=== PATIENT | male | born 1975 | race African-American/Black ===

== ENCOUNTER 2017-01-08 08:56 | Emergency (ER) | payer OTHER ==
[~2017-01-08] VITALS: Ht 170.2 cm; Wt 100.0 kg
[2017-01-08 09:14] VITALS: BP 141/82; PULSE 72; RESP 18; TEMP 98.7; O2SAT 94
[2017-01-08 09:23] VITALS: BP 141/89; PULSE 72; RESP 18; O2SAT 94
[2017-01-08 09:35] LABS: BASOPHIL % 0.4 % (0.0-2.0); EOSINOPHIL % 0.4 % (0.0-4.0); HEMATOCRIT 37.7 % (39.0-51.0); HEMO FLAGS DIFF FINAL; LYMPH % 23.1 % (9.0-44.0); LYMPHOCYTE # 2.4 TH/MM3 (1.0-4.8); MEAN CELL VOLUME 84.5 FL (80.0-100.0); MEAN CORPUSCULAR HEMOGLOBIN 28.9 PG (27.0-34.0); MEAN CORPUSCULAR HGB CONC 34.2 % (32.0-36.0); MONO % 8.3 % (0.0-8.0); NEUT % 67.8 % (16.0-70.0); PLATELET COUNT 340 TH/MM3 (150-450); RED BLOOD COUNT 4.47 MIL/MM3 (4.50-5.90); RED CELL DISTRIBUTION WIDTH 14.9 % (11.6-17.2); WHITE BLOOD COUNT 10.3 TH/MM3 (4.0-11.0)
--- NOTE | 2017-01-08 09:37 | PD ---
HPI Chief Complaint: Psychiatric Symptoms Time Seen by Provider: 09:16 Travel History International Travel<30 days: No Contact w/Intl Traveler<30days: No Traveled to known affect area: No History of Present Illness HPI Patient is a pleasant 41-year-old male who presents the emergency department as a Lamas act. Patient states he called 911 today as he has recently been off of his Seroquel, Cogentin, Zoloft for the last 3 days. Since he's had increasing paranoia and thoughts of suicide. Patient denies any delusions, hallucinations. He called 911 and felt as though he was given a jump off a bridge and he was Lamas acted by police and brought here. Patient states that the medications were only minimally helpful, of all the medications he is ever been on Seroquel has been the most helpful. He denies any concurrent medical complaints. PFSH Past Medical History Depression: Yes Schizophrenia: Yes Tetanus Vaccination: > 5 Years Influenza Vaccination: Yes Past Surgical History Surgical History: No Previous Surgery Social History Alcohol Use: Yes ("NOT OFTEN") Tobacco Use: Yes Substance Use: Yes (COCAINE, MARIJUANA) Allergies-Medications (Allergen,Severity, Reaction): Coded Allergies: No Known Allergies (Unverified , 01/08/17) Review of Systems Except as stated in HPI: all other systems reviewed are Neg Physical Exam Narrative GENERAL: Well-appearing male in no acute distress SKIN: Warm and dry. HEAD: Normocephalic. EYES: No scleral icterus. No injection or drainage. ENT: Mucous membranes pink and moist. NECK: Supple CARDIOVASCULAR: Regular rate and rhythm. No murmur appreciated. RESPIRATORY: No accessory muscle use. Clear to auscultation. Breath sounds equal bilaterally. GASTROINTESTINAL: Abdomen soft, non-tender, nondistended. MUSCULOSKELETAL: Normal gait NEUROLOGICAL: Awake and alert. Motor grossly within normal limits. Normal speech. PSYCHIATRIC: Blunted mood, affect. Admits to paranoia but no delusions, hallucinations or homicidal ideation. Depression with suicidal ideation with plan to jump off bridge. Data Data Last Documented VS Vital Signs Date Time Temp Pulse Resp B/P Pulse Ox O2 Delivery O2 Flow Rate FiO2 01/08/17 09:23 72 18 141/89 94 Room Air 01/08/17 09:14 98.7 Orders Complete Blood Count With Diff (01/08/17 09:16) Comprehensive Metabolic Panel (01/08/17 09:16) Psych Screen (01/08/17 09:16) Drug Screen, Random Urine (01/08/17 09:16) Diet Regular Basic (01/08/17 Breakfast) Quetiapine (Seroquel) (01/08/17 09:45) Labs Laboratory Tests Test 01/08/17 09:20 White Blood Count 10.3 TH/MM3 Red Blood Count 4.47 MIL/MM3 Hemoglobin 12.9 GM/DL Hematocrit 37.7 % Mean Corpuscular Volume 84.5 FL Mean Corpuscular Hemoglobin 28.9 PG Mean Corpuscular Hemoglobin 34.2 % Concent Red Cell Distribution Width 14.9 % Platelet Count 340 TH/MM3 Mean Platelet Volume 6.8 FL Neutrophils (%) (Auto) 67.8 % Lymphocytes (%) (Auto) 23.1 % Monocytes (%) (Auto) 8.3 % Eosinophils (%) (Auto) 0.4 % Basophils (%) (Auto) 0.4 % Neutrophils # (Auto) 7.0 TH/MM3 Lymphocytes # (Auto) 2.4 TH/MM3 Monocytes # (Auto) 0.8 TH/MM3 Eosinophils # (Auto) 0.0 TH/MM3 Basophils # (Auto) 0.0 TH/MM3 CBC Comment DIFF FINAL Differential Comment Sodium Level 139 MEQ/L Potassium Level 4.1 MEQ/L Chloride Level 104 MEQ/L Carbon Dioxide Level 27.4 MEQ/L Anion Gap 8 MEQ/L Blood Urea Nitrogen 19 MG/DL Creatinine 1.53 MG/DL Estimat Glomerular Filtration 51 ML/MIN Rate Random Glucose 89 MG/DL Calcium Level 8.7 MG/DL Total Bilirubin 0.4 MG/DL Aspartate Amino Transf 19 U/L (AST/SGOT) Alanine Aminotransferase 31 U/L (ALT/SGPT) Alkaline Phosphatase 91 U/L Total Protein 7.8 GM/DL Albumin 4.0 GM/DL Urine Opiates Screen NEG Urine Barbiturates Screen NEG Urine Amphetamines Screen NEG Urine Benzodiazepines Screen NEG Urine Cocaine Screen POS Urine Cannabinoids Screen POS MDM Medical Decision Making Medical Screen Exam Complete: Yes Emergency Medical Condition: Yes Medical Record Reviewed: Yes Differential Diagnosis 41-year-old male with history of paranoid schizophrenia, depression here with complaint of suicidal ideation after being off medications for the last 2 days. Differential includes medication nonadherence, schizophrenia, paranoid schizophrenia, depression, bipolar disorder, substance induced mood disorder. Narrative Course Patient placed on monitor, IV established and blood obtained. Given 100 mg Seroquel. CBC, CMP, urine drug screen were obtained and notable for BUN 19, creatinine 1.53. Positive cocaine and cannabinoids. Patient medically cleared for psychiatric evaluation. Diagnosis Primary Impression: Suicidal ideation Additional Impression: Polysubstance abuse Yuridia Acevedo MD Jan 08, 2017 09:37
[2017-01-08 09:39] LABS: AMPHETAMINE, URINE NEG (NEG); BARBITURATES, URINE NEG (NEG); COCAINE, URINE POS (NEG)
[2017-01-08] MEDS ORDERED: QUEtiapine FUMARATE 100 MG TAB PO ONE (09:45)
[2017-01-08 09:47] LABS: ANION GAP 8 MEQ/L (5-15); AST (GOT) 19 U/L (15-37); BICARBONATE 27.4 MEQ/L (21.0-32.0); BLOOD UREA NITROGEN 19 MG/DL (7-18); CHLORIDE 104 MEQ/L (98-107); GLOMERULAR FILTRATION RATE 51 ML/MIN (>89); POTASSIUM 4.1 MEQ/L (3.5-5.1); SODIUM (NA) 139 MEQ/L (136-145)
[2017-01-08 09:50] LABS: ALKALINE PHOSPHATASE 91 U/L (45-117); ALT (GPT) 31 U/L (12-78); TOTAL BILIRUBIN ADULT 0.4 MG/DL (0.2-1.0)
[2017-01-08 12:30] VITALS: BP 124/70; PULSE 75; RESP 18; TEMP 97.3; O2SAT 96
[2017-01-08] MEDS ORDERED: SERO400T PO (13:35)
[2017-01-08] MEDS ORDERED: ZOLO50TA PO (13:36)
[2017-01-08] MEDS ORDERED: VIST25CA PO (13:36)
[2017-01-08 18:00] VITALS: BP 103/59; PULSE 69; RESP 18; TEMP 98.6; O2SAT 96
[2017-01-08 22:40] VITALS: BP 100/58; PULSE 70; RESP 18; O2SAT 96
[2017-01-09 03:47] VITALS: BP 115/73; PULSE 54; RESP 18; O2SAT 99
[2017-01-09 06:55] VITALS: BP 139/89; PULSE 64; RESP 19; O2SAT 98
[2017-01-09 10:00] VITALS: BP 133/81; PULSE 65; RESP 18
[2017-01-09 14:24] VITALS: BP 112/49; O2SAT 96
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
== END 2017-01-09 15:23 | disposition home or self-care (01) ==
LOC: NEPA 08:56 → NEPJ 01-09 15:23
DX: F14.14 Cocaine abuse with cocaine-induced mood disorder (principal); F12.10 Cannabis abuse, uncomplicated; Z72.0 Tobacco use
CPT/HCPCS: 80053; 80307; 85025; 99283

== ENCOUNTER 2017-01-10 14:53 | Emergency (ER) | payer OTHER ==
[~2017-01-10] VITALS: Ht 170.2 cm; Wt 104.5 kg
[~2017-01-10 14:53] MED LIST: SERO400T PO; VIST25CA PO; ZOLO50TA PO
[2017-01-10 15:02] VITALS: BP 130/82; PULSE 71; RESP 15; TEMP 98; O2SAT 99
--- NOTE | 2017-01-10 15:39 | PD ---
HPI Chief Complaint: Psychiatric Symptoms Time Seen by Provider: 15:36 Travel History International Travel<30 days: No Contact w/Intl Traveler<30days: No Traveled to known affect area: No History of Present Illness HPI Patient is a 41-year-old male presenting to the emergency department for evaluation of depression, suicidal ideations and hearing voices. He states that the voices aren't telling him to do anything but it's more of an internal voice causing some confusion. He denies any constitutional complaints. Patient states that he was advised to come back to the emergency department today by his revenue officer. Patient reports not using any drugs or alcohol since prior to his last evaluation emergency department 2 days ago. He denies a significant past medical history other than mental health problems. He does endorse tobacco use but again denies any alcohol or drug use since prior to Tuesday. Patient does not have a suicide plan at this time but does report feeling suicidal and thinking about it. PFSH Past Medical History Depression: Yes Schizophrenia: Yes Social History Alcohol Use: Yes ("NOT OFTEN") Tobacco Use: Yes Substance Use: Yes Allergies-Medications (Allergen,Severity, Reaction): Coded Allergies: No Known Allergies (Unverified , 01/10/17) Reported Meds & Prescriptions Reported Meds & Active Scripts Active Reported Vistaril (Hydroxyzine Pamoate) 25 Mg Cap 25 Mg PO HS Zoloft (Sertraline HCl) 50 Mg Tab 50 Mg PO DAILY Seroquel (Quetiapine Fumarate) 400 Mg Tab 400 Mg PO HS Review of Systems Except as stated in HPI: all other systems reviewed are Neg Psychiatric: Positive: Depression, Suicidal Ideations, Substance Abuse Physical Exam Narrative GENERAL: Well-developed, well-nourished, alert gentleman. Resting comfortably in no acute distress. SKIN: Warm and dry. HEAD: Atraumatic. Normocephalic. EYES: Pupils equal and round. No scleral icterus. No injection or drainage. ENT: No nasal bleeding or discharge. Mucous membranes pink and moist. NECK: Trachea midline. No JVD. CARDIOVASCULAR: Regular rate and rhythm. No murmur appreciated. RESPIRATORY: No accessory muscle use. Clear to auscultation. Breath sounds equal bilaterally. GASTROINTESTINAL: Abdomen soft, non-tender, nondistended. Hepatic and splenic margins not palpable. MUSCULOSKELETAL: No obvious deformities. No clubbing. No cyanosis. No edema. NEUROLOGICAL: Awake and alert. No obvious cranial nerve deficits. Motor grossly within normal limits. Normal speech. PSYCHIATRIC: Flat, depressed mood and affect; insight and judgment normal. Data Data Last Documented VS Vital Signs Date Time Temp Pulse Resp B/P Pulse Ox O2 Delivery O2 Flow Rate FiO2 01/10/17 15:02 98.0 71 15 130/82 99 Orders Comprehensive Metabolic Panel (01/10/17 15:33) Psych Screen (01/10/17 15:39) Labs Laboratory Tests Test 01/10/17 15:50 Sodium Level 142 MEQ/L Potassium Level 4.0 MEQ/L Chloride Level 106 MEQ/L Carbon Dioxide Level 29.3 MEQ/L Anion Gap 7 MEQ/L Blood Urea Nitrogen 10 MG/DL Creatinine 1.18 MG/DL Estimat Glomerular Filtration 83 ML/MIN Rate Random Glucose 68 MG/DL Calcium Level 8.8 MG/DL Total Bilirubin 0.1 MG/DL Aspartate Amino Transf 16 U/L (AST/SGOT) Alanine Aminotransferase 25 U/L (ALT/SGPT) Alkaline Phosphatase 80 U/L Total Protein 7.0 GM/DL Albumin 3.5 GM/DL MDM Medical Decision Making Medical Screen Exam Complete: Yes Emergency Medical Condition: Yes Interpretation(s) Laboratory Tests Test 01/10/17 15:50 Sodium Level 142 MEQ/L Potassium Level 4.0 MEQ/L Chloride Level 106 MEQ/L Carbon Dioxide Level 29.3 MEQ/L Anion Gap 7 MEQ/L Blood Urea Nitrogen 10 MG/DL Creatinine 1.18 MG/DL Estimat Glomerular Filtration 83 ML/MIN Rate Random Glucose 68 MG/DL Calcium Level 8.8 MG/DL Total Bilirubin 0.1 MG/DL Aspartate Amino Transf 16 U/L (AST/SGOT) Alanine Aminotransferase 25 U/L (ALT/SGPT) Alkaline Phosphatase 80 U/L Total Protein 7.0 GM/DL Albumin 3.5 GM/DL Vital Signs Date Time Temp Pulse Resp B/P Pulse Ox O2 Delivery O2 Flow Rate FiO2 01/10/17 15:02 98.0 71 15 130/82 99 Differential Diagnosis Mood disorder versus substance abuse versus acute kidney injury versus depression versus other Narrative Course Patient is a 41-year-old male presenting to the emergency department on the advice of his revenue officer due to suicidal ideations, depression, and auditory hallucinations. Patient was just discharged on 08 January. At this point we will recheck a CMP due to elevated BUN and creatinine on the last admission. Patient had a positive tox screen then but denies any recent drug use. Psych screen ordered and pending. Workup initiated in triage, care patient will be transferred to a provider when a medical bed is available. BUN and creatinine have improved from prior results. Medically cleared at this time for psychiatric evaluation. Diagnosis Primary Impression: Medical clearance for psychiatric admission Additional Impressions: Depression Qualified Code: F32.9 - Depression, unspecified depression type Suicidal ideation Condition: Stable Araceli Weston Jan 10, 2017 15:39
[2017-01-10 16:42] LABS: ALKALINE PHOSPHATASE 80 U/L (45-117); TOTAL BILIRUBIN ADULT 0.1 MG/DL (0.2-1.0)
[2017-01-10 16:45] LABS: ALT (GPT) 25 U/L (12-78); ANION GAP 7 MEQ/L (5-15); AST (GOT) 16 U/L (15-37); BICARBONATE 29.3 MEQ/L (21.0-32.0); BLOOD UREA NITROGEN 10 MG/DL (7-18); CHLORIDE 106 MEQ/L (98-107); GLOMERULAR FILTRATION RATE 83 ML/MIN (>89); SODIUM (NA) 142 MEQ/L (136-145)
[2017-01-10 21:15] VITALS: BP 123/76; PULSE 73; RESP 16; O2SAT 97
[2017-01-11 02:02] VITALS: BP 140/85; PULSE 64; RESP 18; O2SAT 99
--- NOTE | 2017-01-11 12:42 | MB ---
cc: MAHESH BROWN MD DATE OF CONSULTATION 01/11/2017 PHYSICIAN REQUESTING CONSULTATION Emergency department REASON FOR CONSULTATION Lamas Act HISTORY OF PRESENT ILLNESS Mr. Donovan is a 41-year-old -[place]ian male with a reported history of schizoaffective disorder versus bipolar disorder who presents now on a voluntary basis to the emergency room with psychiatric complaints. Reviewing the electronic medical record, I note the patient was seen just a few days ago in consultation by Dr. Edgar who discharged the patient from the ED with prescriptions for medications. The patient was actively using substances including cocaine at that time. The patient was seen and examined. The chart reviewed. The case discussed with nurse in the [facility]. There has been no evidence of any suicidality or homicidality during observation in the [facility]. Per nursing staff, the patient has come here with the stated goal of getting into some sort of mental health [facility]. The patient tells me "I came in voluntarily for mental health and substance abuse." He is unable to describe any further psychiatric symptomatology without prompting, and he is overall quite a vague historian. He seems relatively unengaged in the interview until the topic of discharge comes up. At that point, he becomes the fairly manipulative and threatening and says that he must have inpatient psychiatric services and if not, he does not know what he might do. Prior to that, he had been denying suicidal or homicidal ideation. He, in fact told me, "I do not want to . I want to live for my son." As I noted above, the patient is a very vague historian and does not describe any issues with mood, anxiety or psychosis besides some mild paranoia. He says that he did not bother to fill the prescriptions given to him by Dr. Edgar. He had been psychiatrically hospitalized previously in [place], but did not pursue their follow up instructions either. Overall, the patient is quite antisocial and manipulative I suspect with a goal of obtaining care home as he is presently homeless. The remainder of the psychiatric ROS is negative. PAST PSYCHIATRIC HISTORY The patient reports prior psychiatric diagnoses as noted above. He is not presently under the care of a psychiatrist. He was recently psychiatrically hospitalized at [facility] in [place], he says under a [place]man Act, but he did pursue some psychotropic medication management for his reported primary mental illness. He endorses one prior suicide attempt by cutting, and I note that the patient has some superficial, longitudinal scars along his right wrist. FAMILY HISTORY The patient reports a family history of schizophrenia. He reports that his father struggled with substance use issues. He endorses "some" family history of suicide or suicide attempts, but he cannot provide any further details in this regard. CHEMICAL DEPENDENCY HISTORY The patient apparently has a history of crack cocaine abuse. He insists that he has not used any substances between when he was seen by Dr. Edgar, at which point at which point he had been actively using, and now. Repeat urine toxicology was not performed by the ED provider, but in any event, this would likely reveal the same substances given the brief time that the patient was outside of the psychiatric emergency room, regardless of whether ongoing substance use had occurred. SOCIAL HISTORY The patient is presently homeless. He is single, but has a 9-year-old son. 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 He also gets a disability income of 735 dollars a month. He does not have a payee. He denies any history. He is particularly evasive regarding his legal situation, but says ultimately that he is on probation for robbery charges. He denies any access to guns or firearms. PAST MEDICAL HISTORY See electronic medical record. REVIEW OF SYSTEMS No reported physical complaints today. PHYSICAL EXAMINATION VITAL SIGNS: T 98.0F; P 64/min; R 18/min; BP 140/85; SpO2 99% RA. A physical examination was completed by the ED provider and the patient was medically cleared. On my examination today, the patient appears to be well-nourished and well-developed and in no acute physical distress. No abnormal motor movements noted. No signs of substance intoxication or withdrawal noted. LABORATORY Reviewed. CMP significant for mildly decreased GFR at 83. MENTAL STATUS EXAM The patient is in hospital gown. He is fairly well-groomed and certainly maintaining basic hygiene. He is awake, alert and oriented to person and hospital along with approximate date at least. No signs of delirium. No abnormal motor movements noted. Steady gait and station. Speech is within normal limits for rate, tone and volume. Language and fund of knowledge seem average. Mood is fair and affect is somewhat blunted. Thought process linear. No loosening of associations. No aurelia delusional material elicited. Denies audiovisual hallucinations and does not appear internally stimulated. Denies suicidal or homicidal ideation initially, but then threatens some sort of acting out if he were discharged from the psychiatric emergency room this morning. Insight and judgment are fair. ASSESSMENT/PLAN 1. Malingering for care home, Z76.5 2. Antisocial personality traits 3. Polysubstance dependence, F19.20 This is a 41-year-old -[place]ian male with psychiatric history as detailed above who presents now voluntarily to the psychiatric emergency room for evaluation. The patient was recently evaluated by Dr. Edgar and discharged from the psychiatric emergency room with prescriptions for medications. The patient has not followed Dr. Edgar's recommendations on discharge and has apparently returned to the psychiatric emergency room in hopes of obtaining long-term placement in a psychiatric [facility]. Overall, the patient's presentation is quite manipulative with prominent antisocial personality traits, and I strongly suspect that he is malingering for care home at this time. I see no indication for psychiatric admission as I do not believe that the patient is at imminent risk of harm to self or others from an Bussey I mental illness. It is, of course, certainly possible that the patient may act out in retribution for us not admitting him and housing him as he wishes, but it would be counter-therapeutic at this juncture to accede to his manipulative demands as this would only facilitate his antisocial personality style. I have recommended that the patient follow up psychiatrically on an outpatient basis. I have counseled the patient regarding warning signs for need to return to the psychiatric emergency room as part of a general safety plan and emphasized that he must return if he is feeling genuinely suicidal or homicidal. I fear that this patient's prognosis overall is poor unless he gets his substance use and antisocial personality issues under better control, and as I noted, neither of these would be ameliorated by an inpatient stay on the general inpatient psychiatric unit. I have discussed the case with the nurse of the [facility]. The patient will be provide with an outpatient referral. The patient is psychiatrically clear for discharge from the ED. Mahesh NAGEL /8:28 AM /11:27 AM MTDD
== END 2017-01-11 10:58 | disposition home or self-care (01) ==
LOC: NEPA 14:53 → NEPJ 01-11 10:58
DX: F32.9 Major depressive disorder, single episode, unspecified (principal); F19.20 Other psychoactive substance dependence, uncomplicated; F20.9 Schizophrenia, unspecified; Z72.0 Tobacco use; Z59.0 Homelessness; Z76.5 Malingerer [conscious simulation]
CPT/HCPCS: 80053; 99284

== ENCOUNTER 2017-01-23 16:04 | Emergency (ER) | payer OTHER ==
[~2017-01-23] VITALS: Ht 170.2 cm; Wt 105.0 kg
[2017-01-23 16:15] VITALS: BP 136/59; PULSE 82; RESP 18; TEMP 98.6; O2SAT 97
[2017-01-23] MEDS ORDERED: SODIUM CHLORIDE 0.9% FLUSH 10 ML FLUSH IVF PRN (16:30)
--- NOTE | 2017-01-23 16:36 | PD ---
HPI . ? seizure earlier today Chief Complaint: Seizure Time Seen by Provider: 16:33 Travel History International Travel<30 days: No Contact w/Intl Traveler<30days: No Traveled to known affect area: No History of Present Illness HPI 41-year-old male with history of bipolar disorder, schizophrenia and depression here with complaints of possible seizure. Patient had some kind of seizure where he passed out. He says it was witnessed by other people. He denies any tongue biting or loss of bowel or bladder function. He tells us that he had not eaten for a very long period and thinks this may have contributed to his symptoms. He does report cocaine usage but has not used for about 1-2 weeks. He denies any alcohol or other illegal substance usage. Patient patient denies any pains or problems. He is asking to leave, as he wants return to the homeless intermediate for some type of dinner that they will be having today. He denies any chest pain, nausea, vomiting, diaphoresis or shortness of breath. Patient recently relocated from [place] to the [facility]. He tells me he has been locally for about a month. Previous records indicate that he has been in the ED before for suicidal ideation. There are no reports of seizure disorder in the past. PFSH Past Medical History Depression: Yes Schizophrenia: Yes Social History Alcohol Use: Yes ("NOT OFTEN") Tobacco Use: Yes (6 cigs daily ) Substance Use: Yes (marijuana, cocaine ) Allergies-Medications (Allergen,Severity, Reaction): Coded Allergies: No Known Allergies (Unverified , 01/10/17) Reported Meds & Prescriptions Reported Meds & Active Scripts Active Reported Vistaril (Hydroxyzine Pamoate) 25 Mg Cap 25 Mg PO HS Zoloft (Sertraline HCl) 50 Mg Tab 50 Mg PO DAILY Seroquel (Quetiapine Fumarate) 400 Mg Tab 400 Mg PO HS Review of Systems General / Constitutional: No: Fever Eyes: No: Visual changes HENT: No: Headaches Cardiovascular: No: Chest Pain or Discomfort Respiratory: No: Shortness of Breath Gastrointestinal: No: Abdominal Pain Genitourinary: No: Dysuria Musculoskeletal: No: Pain Skin: No Rash Neurologic: No: Weakness Psychiatric: No: Depression Endocrine: No: Polydipsia Hematologic/Lymphatic: No: Easy Bruising Physical Exam Narrative GENERAL: AAO x 3, no acute distress, Well-nourished, well-developed patient. SKIN: Warm and dry. No visible rashes or bruising. HEAD: Normocephalic and atraumatic. EYES: No scleral icterus. No injection or drainage. EOM intact, PERRLA ENT: No nasal drainage noted. Mucous membranes pink. Airway patent. NECK: Supple, trachea midline. No JVD. CARDIOVASCULAR: Regular rate and rhythm without murmurs, gallops, or rubs. RESPIRATORY: Breath sounds equal bilaterally. No accessory muscle use. No rhonchi or rales. GASTROINTESTINAL: Abdomen soft, non-tender, nondistended. EXTREMITIES: No cyanosis or edema. NEURO: grossly intact, CN II through XII intact, feed grinder strength normal bilaterally, upper extremity and lower extremity strength 5 out of 5, BACK: Nontender without obvious deformity. No CVA tenderness. PSYCH: AAO x 3, normal affect. Data Data Last Documented VS Vital Signs Date Time Temp Pulse Resp B/P Pulse Ox O2 Delivery O2 Flow Rate FiO2 01/23/17 16:15 98.6 82 18 136/59 97 Orders Electrocardiogram (01/23/17 ) Complete Blood Count With Diff (01/23/17 16:27) Basic Metabolic Panel (Bmp) (01/23/17 16:27) Alcohol (Ethanol) (01/23/17 16:27) Drug Screen, Random Urine (01/23/17 16:27) Blood Glucose (01/23/17 16:27) Ecg Monitoring (01/23/17 16:27) Iv Access Insert/Monitor (01/23/17 16:27) Oximetry (01/23/17 16:27) Sodium Chloride 0.9% Flush (Ns Flush) (01/23/17 16:30) Ckmb (Isoenzyme) Profile (01/23/17 16:39) D-Dimer (01/23/17 16:39) Troponin I (01/23/17 16:39) Labs Laboratory Tests Test 01/23/17 16:42 White Blood Count 6.7 TH/MM3 Red Blood Count 4.01 MIL/MM3 Hemoglobin 11.4 GM/DL Hematocrit 34.2 % Mean Corpuscular Volume 85.3 FL Mean Corpuscular Hemoglobin 28.4 PG Mean Corpuscular Hemoglobin 33.3 % Concent Red Cell Distribution Width 14.7 % Platelet Count 266 TH/MM3 Mean Platelet Volume 7.4 FL Neutrophils (%) (Auto) 59.6 % Lymphocytes (%) (Auto) 31.0 % Monocytes (%) (Auto) 6.5 % Eosinophils (%) (Auto) 2.3 % Basophils (%) (Auto) 0.6 % Neutrophils # (Auto) 4.0 TH/MM3 Lymphocytes # (Auto) 2.1 TH/MM3 Monocytes # (Auto) 0.4 TH/MM3 Eosinophils # (Auto) 0.2 TH/MM3 Basophils # (Auto) 0.0 TH/MM3 CBC Comment DIFF FINAL Differential Comment Sodium Level 141 MEQ/L Potassium Level 3.7 MEQ/L Chloride Level 106 MEQ/L Carbon Dioxide Level 27.1 MEQ/L Anion Gap 8 MEQ/L Blood Urea Nitrogen 11 MG/DL Creatinine 1.18 MG/DL Estimat Glomerular Filtration 83 ML/MIN Rate Random Glucose 119 MG/DL Calcium Level 8.9 MG/DL Ethyl Alcohol Level LESS THAN 3 MG/DL MDM Medical Decision Making Medical Screen Exam Complete: Yes Emergency Medical Condition: Yes Medical Record Reviewed: Yes Differential Diagnosis New onset seizure, hypoglycemia, less likely ACS Narrative Course 41-year-old male with history of bipolar disorder, schizophrenia and depression here with complaints of possible seizure. Patient had some kind of seizure where he passed out. He says it was witnessed by other people. He denies any tongue biting or loss of bowel or bladder function. He tells us that he had not eaten for a very long period and thinks this may have contributed to his symptoms. He does report cocaine usage but has not used for about 1-2 weeks. He denies any alcohol or other illegal substance usage. Patient patient denies any pains or problems. He is asking to leave, as he wants return to the homeless intermediate for some type of dinner that they will be having today. He denies any chest pain, nausea, vomiting, diaphoresis or shortness of breath. Patient recently relocated from [place] to the [facility]. He tells me he has been locally for about a month. Previous records indicate that he has been in the ED before for suicidal ideation. There are no reports of seizure disorder in the past. Patient seen and examined. Case discussed with Dr. Martinez. EKG was normal sinus rhythm. Nonetheless will check CE and D dimer to r/o ACS and PE. Recommend CT scan of the brain and basic labs. If negative patient will likely be cleared for discharge. We will monitor him in the meantime. I believe patient may have had a hypoglycemic event and actually passed out from low blood sugar due to the fact he had not eaten in quite some time. Patient unfortunately decided to leave AMA. He was aware of risks. Diagnosis Primary Impression: Left against medical advice Disposition: 07 AGAINST MEDICAL ADVICE Fanny Hay Jan 23, 2017 16:36
--- NOTE | 2017-01-23 16:45 | PD ---
Physical Exam Date Seen by Provider: Jan 23, 2017 Narrative Patient presents to us status post a seizure or syncopal event Data Data Last Documented VS Vital Signs Date Time Temp Pulse Resp B/P Pulse Ox O2 Delivery O2 Flow Rate FiO2 01/23/17 16:15 98.6 82 18 136/59 97 Orders Electrocardiogram (01/23/17 ) Complete Blood Count With Diff (01/23/17 16:27) Basic Metabolic Panel (Bmp) (01/23/17 16:27) Alcohol (Ethanol) (01/23/17 16:27) Drug Screen, Random Urine (01/23/17 16:27) Ct Brain W/O Iv Contrast(Rout) (01/23/17 ) Blood Glucose (01/23/17 16:27) Ecg Monitoring (01/23/17 16:27) Iv Access Insert/Monitor (01/23/17 16:27) Oximetry (01/23/17 16:27) Sodium Chloride 0.9% Flush (Ns Flush) (01/23/17 16:30) Ckmb (Isoenzyme) Profile (01/23/17 16:39) D-Dimer (01/23/17 16:39) Troponin I (01/23/17 16:39) MDM Supervised Visit with GOPI: Yes Narrative Course I, Dr. Martinez, have reviewed the advance practice practitioner's documentation and am in agreement, met with the patient face to face, made the diagnosis, and the medical decision making was done by me. *My assessment and Findings: Patient does not appear postictal. He is awake and alert and fully oriented. He has no lateralizing neurologic findings. Patient Instructions: General Instructions Condition: Stable Alicia Martinez MD Jan 23, 2017 16:45
[2017-01-23 17:29] LABS: BASOPHIL % 0.6 % (0.0-2.0); EOSINOPHIL # 0.2 TH/MM3 (0-0.4); EOSINOPHIL % 2.3 % (0.0-4.0); HEMATOCRIT 34.2 % (39.0-51.0); HEMO FLAGS DIFF FINAL; LYMPHOCYTE # 2.1 TH/MM3 (1.0-4.8); MEAN CELL VOLUME 85.3 FL (80.0-100.0); MEAN CORPUSCULAR HEMOGLOBIN 28.4 PG (27.0-34.0); MEAN CORPUSCULAR HGB CONC 33.3 % (32.0-36.0); MONO % 6.5 % (0.0-8.0); NEUT % 59.6 % (16.0-70.0); PLATELET COUNT 266 TH/MM3 (150-450); RED BLOOD COUNT 4.01 MIL/MM3 (4.50-5.90); RED CELL DISTRIBUTION WIDTH 14.7 % (11.6-17.2); WHITE BLOOD COUNT 6.7 TH/MM3 (4.0-11.0)
[2017-01-23 18:05] LABS: ANION GAP 8 MEQ/L (5-15); BICARBONATE 27.1 MEQ/L (21.0-32.0); BLOOD UREA NITROGEN 11 MG/DL (7-18); CHLORIDE 106 MEQ/L (98-107); GLOMERULAR FILTRATION RATE 83 ML/MIN (>89); POTASSIUM 3.7 MEQ/L (3.5-5.1); SODIUM (NA) 141 MEQ/L (136-145)
[2017-01-24 02:08] LABS: CREATINE KINASE 216 U/L (39-308)
[2017-01-24 02:20] LABS: CKMB 1.8 NG/ML (0.5-3.6)
--- NOTE | 2017-01-24 14:04 | EKG ---
Date Performed: 01/23/2017 Time Performed: 16:16:27 PTAGE: 41 years EKG: Sinus rhythm NORMAL ECG NO PREVIOUS TRACING DOCTOR: Mark Main Interpretating Date/Time 01/24/2017 14:01:41
== END 2017-01-23 18:43 | disposition left against medical advice (07) ==
LOC: NEPA 16:04
DX: R56.9 Unspecified convulsions (principal); F20.9 Schizophrenia, unspecified; F31.9 Bipolar disorder, unspecified; F17.200 Nicotine dependence, unspecified, uncomplicated
CPT/HCPCS: 80048; 80307; 82550; 82552; 84484; 85025; 93005

== ENCOUNTER 2017-01-24 18:44 | Emergency (ER) | payer OTHER ==
[2017-01-24] MEDS ORDERED: SODIUM CHLOR 0.9% 1000 ML INJ 1,000 ML IV SCH ×2 (18:51→20:51)
--- NOTE | 2017-01-24 18:56 | PD ---
HPI Chief Complaint: Alcohol/Drug Intoxication Time Seen by Provider: 18:51 Travel History International Travel<30 days: No Contact w/Intl Traveler<30days: No Traveled to known affect area: No History of Present Illness HPI The patient is a 41-year-old [place] male who presents to the emergency department after drug ingestion. According EMS the patient smoked "spice" earlier today. The patient then was somewhat paranoid and appeared to be "fidgeting ", according to EMS. The patient appeared to run out in traffic according to EMS, therefore, the police called EMS to evaluate the patient. The patient denies any suicidal or homicidal ideation. He denies any hallucinations or delusions. He does admit to smoking "spice "earlier today and has a history of drug ingestion in the past including cocaine. He denies illicit drug use. He denies any current chest pain, shortness breath, nausea, vomiting, or abdominal pain. EMS states they administered Ativan 2 mg IM prior to arrival which appeared to alleviate the patient's symptoms. PFSH Past Medical History Depression: Yes Schizophrenia: Yes Social History Alcohol Use: Yes ("NOT OFTEN") Tobacco Use: Yes (6 cigs daily ) Substance Use: Yes (marijuana, cocaine ) Allergies-Medications (Allergen,Severity, Reaction): Coded Allergies: No Known Allergies (Unverified , 01/24/17) Reported Meds & Prescriptions Reported Meds & Active Scripts Active Reported Zoloft (Sertraline HCl) 50 Mg Tab 50 Mg PO DAILY Seroquel (Quetiapine Fumarate) 400 Mg Tab 400 Mg PO HS Review of Systems Except as stated in HPI: all other systems reviewed are Neg General / Constitutional: No: Fever Cardiovascular: No: Chest Pain or Discomfort Respiratory: No: Shortness of Breath Gastrointestinal: No: Nausea, Vomiting, Abdominal Pain Musculoskeletal: No: Weakness Neurologic: No: Dizziness Psychiatric: Positive: Substance Abuse, No: Suicidal Ideations, Homicidal Ideation Physical Exam Narrative GENERAL: Awake, alert, 41-year-old male who appears his stated age is in no acute respiratory distress. SKIN: Focused skin assessment warm/dry. HEAD: Atraumatic. Normocephalic. EYES: Pupils equal and round. 4 mm bilateral. Mild injection. ENT: No nasal bleeding or discharge. Mucous membranes pink and moist. NECK: Trachea midline. No JVD. CARDIOVASCULAR: Regular, tachycardic with a heart rate of 110. RESPIRATORY: No accessory muscle use. Clear to auscultation. Breath sounds equal bilaterally. GASTROINTESTINAL: Abdomen soft, non-tender, nondistended. MUSCULOSKELETAL: No obvious deformities. No clubbing. No cyanosis. No edema. NEUROLOGICAL: Awake and alert. No obvious cranial nerve deficits. Motor grossly within normal limits. Normal speech. Nonfocal. Oriented 4. Follows commands. PSYCHIATRIC: Appears slightly paranoid. Data Data Last Documented VS Vital Signs Date Time Temp Pulse Resp B/P Pulse Ox O2 Delivery O2 Flow Rate FiO2 01/25/17 06:31 78 20 136/78 99 01/24/17 19:32 97.7 Orders Complete Blood Count With Diff (01/24/17 18:46) Comprehensive Metabolic Panel (01/24/17 18:46) Electrocardiogram (01/24/17 18:46) Iv Access Insert/Monitor (01/24/17 18:46) Psych Screen (01/24/17 18:46) Drug Screen, Random Urine (01/24/17 18:46) Alcohol (Ethanol) (01/24/17 18:46) Salicylates (Aspirin) (01/24/17 18:46) Tylenol (Acetaminophen) (01/24/17 18:46) Lorazepam Inj (Ativan Inj) (01/24/17 19:00) Sodium Chlor 0.9% 1000 Ml Inj (Ns 1000 M (01/24/17 18:51) Creatine Kinase (Cpk) (01/24/17 18:51) Lactic Acid (01/24/17 18:51) Sodium Chlor 0.9% 1000 Ml Inj (Ns 1000 M (01/24/17 20:51) Lactic Acid (01/24/17 20:51) Labs Laboratory Tests Test 01/24/17 01/24/17 01/24/17 19:00 19:35 21:45 White Blood Count 6.6 TH/MM3 Red Blood Count 4.13 MIL/MM3 Hemoglobin 11.7 GM/DL Hematocrit 35.4 % Mean Corpuscular Volume 85.8 FL Mean Corpuscular Hemoglobin 28.2 PG Mean Corpuscular Hemoglobin 32.9 % Concent Red Cell Distribution Width 14.9 % Platelet Count 301 TH/MM3 Mean Platelet Volume 7.1 FL Neutrophils (%) (Auto) 78.7 % Lymphocytes (%) (Auto) 15.0 % Monocytes (%) (Auto) 5.3 % Eosinophils (%) (Auto) 0.5 % Basophils (%) (Auto) 0.5 % Neutrophils # (Auto) 5.2 TH/MM3 Lymphocytes # (Auto) 1.0 TH/MM3 Monocytes # (Auto) 0.3 TH/MM3 Eosinophils # (Auto) 0.0 TH/MM3 Basophils # (Auto) 0.0 TH/MM3 CBC Comment DIFF FINAL Differential Comment Sodium Level 144 MEQ/L Potassium Level 4.1 MEQ/L Chloride Level 110 MEQ/L Carbon Dioxide Level 25.0 MEQ/L Anion Gap 9 MEQ/L Blood Urea Nitrogen 14 MG/DL Creatinine 1.89 MG/DL Estimat Glomerular Filtration 48 ML/MIN Rate Random Glucose 170 MG/DL Calcium Level 9.4 MG/DL Total Bilirubin 0.1 MG/DL Aspartate Amino Transf 23 U/L (AST/SGOT) Alanine Aminotransferase 41 U/L (ALT/SGPT) Alkaline Phosphatase 89 U/L Total Protein 7.2 GM/DL Albumin 3.5 GM/DL Salicylates Level LESS THAN 1.7 MG/DL Urine Opiates Screen NEG Acetaminophen Level LESS THAN 2.0 MCG/ML Urine Barbiturates Screen NEG Urine Amphetamines Screen NEG Urine Benzodiazepines Screen NEG Urine Cocaine Screen POS Urine Cannabinoids Screen POS Ethyl Alcohol Level LESS THAN 3 MG/DL Lactic Acid Level 3.8 mmol/L 1.4 mmol/L Total Creatine Kinase 195 U/L MDM Medical Decision Making Medical Screen Exam Complete: Yes Emergency Medical Condition: Yes Medical Record Reviewed: Yes Interpretation(s) Laboratory Tests Test 01/24/17 01/24/17 01/24/17 19:00 19:35 21:45 White Blood Count 6.6 TH/MM3 Red Blood Count 4.13 MIL/MM3 Hemoglobin 11.7 GM/DL Hematocrit 35.4 % Mean Corpuscular Volume 85.8 FL Mean Corpuscular Hemoglobin 28.2 PG Mean Corpuscular Hemoglobin 32.9 % Concent Red Cell Distribution Width 14.9 % Platelet Count 301 TH/MM3 Mean Platelet Volume 7.1 FL Neutrophils (%) (Auto) 78.7 % Lymphocytes (%) (Auto) 15.0 % Monocytes (%) (Auto) 5.3 % Eosinophils (%) (Auto) 0.5 % Basophils (%) (Auto) 0.5 % Neutrophils # (Auto) 5.2 TH/MM3 Lymphocytes # (Auto) 1.0 TH/MM3 Monocytes # (Auto) 0.3 TH/MM3 Eosinophils # (Auto) 0.0 TH/MM3 Basophils # (Auto) 0.0 TH/MM3 CBC Comment DIFF FINAL Differential Comment Sodium Level 144 MEQ/L Potassium Level 4.1 MEQ/L Chloride Level 110 MEQ/L Carbon Dioxide Level 25.0 MEQ/L Anion Gap 9 MEQ/L Blood Urea Nitrogen 14 MG/DL Creatinine 1.89 MG/DL Estimat Glomerular Filtration 48 ML/MIN Rate Random Glucose 170 MG/DL Calcium Level 9.4 MG/DL Total Bilirubin 0.1 MG/DL Aspartate Amino Transf 23 U/L (AST/SGOT) Alanine Aminotransferase 41 U/L (ALT/SGPT) Alkaline Phosphatase 89 U/L Total Protein 7.2 GM/DL Albumin 3.5 GM/DL Salicylates Level LESS THAN 1.7 MG/DL Urine Opiates Screen NEG Acetaminophen Level LESS THAN 2.0 MCG/ML Urine Barbiturates Screen NEG Urine Amphetamines Screen NEG Urine Benzodiazepines Screen NEG Urine Cocaine Screen POS Urine Cannabinoids Screen POS Ethyl Alcohol Level LESS THAN 3 MG/DL Lactic Acid Level 3.8 mmol/L 1.4 mmol/L Total Creatine Kinase 195 U/L Differential Diagnosis Differential diagnosis includes drug ingestion, rhabdomyolysis, schizophrenia, paranoia, psychosis, polysubstance abuse. Narrative Course IV was established, labs are drawn and sent, and the patient was placed on cardiac telemetry monitoring and continuous pulse oximetry monitoring. Patient was administered IV fluids and Ativan. The patient will be monitored in the emergency department. The patient was signed out the mid-level provider 7 PM. Diagnosis Primary Impression: Polysubstance abuse Condition: Stable Gonsalo Anthony MD Jan 24, 2017 18:56
[2017-01-24] MEDS ORDERED: LORazepam 2 MG/ML VIAL IV PUSH ONE (19:00)
[2017-01-24 19:17] LABS: AUTOMATED NEUTROPHIL # 5.2 TH/MM3 (1.8-7.7); BASOPHIL % 0.5 % (0.0-2.0); EOSINOPHIL % 0.5 % (0.0-4.0); HEMATOCRIT 35.4 % (39.0-51.0); HEMO FLAGS DIFF FINAL; MEAN CELL VOLUME 85.8 FL (80.0-100.0); MEAN CORPUSCULAR HEMOGLOBIN 28.2 PG (27.0-34.0); MEAN CORPUSCULAR HGB CONC 32.9 % (32.0-36.0); MONO % 5.3 % (0.0-8.0); NEUT % 78.7 % (16.0-70.0); PLATELET COUNT 301 TH/MM3 (150-450); RED BLOOD COUNT 4.13 MIL/MM3 (4.50-5.90); RED CELL DISTRIBUTION WIDTH 14.9 % (11.6-17.2); WHITE BLOOD COUNT 6.6 TH/MM3 (4.0-11.0)
--- NOTE | 2017-01-24 19:31 | PD ---
Physical Exam Date Seen by Provider: Jan 24, 2017 Time Seen by Provider: 19:27 Narrative 41-year-old male that presents to the ED for evaluation of substance abuse. Patient apparently had a possible seizure. Seizure was felt to be more related to intoxication from smoking substance. Case was signed out to me by my attending Dr. Anthony pending labs and reevaluation. Please refer to his note. Data Data Last Documented VS Vital Signs Date Time Temp Pulse Resp B/P Pulse Ox O2 Delivery O2 Flow Rate FiO2 01/24/17 19:32 106 20 01/24/17 19:32 95 01/24/17 19:32 97.7 117/65 Orders Complete Blood Count With Diff (01/24/17 18:46) Comprehensive Metabolic Panel (01/24/17 18:46) Electrocardiogram (01/24/17 18:46) Iv Access Insert/Monitor (01/24/17 18:46) Psych Screen (01/24/17 18:46) Drug Screen, Random Urine (01/24/17 18:46) Alcohol (Ethanol) (01/24/17 18:46) Salicylates (Aspirin) (01/24/17 18:46) Tylenol (Acetaminophen) (01/24/17 18:46) Lorazepam Inj (Ativan Inj) (01/24/17 19:00) Sodium Chlor 0.9% 1000 Ml Inj (Ns 1000 M (01/24/17 18:51) Creatine Kinase (Cpk) (01/24/17 18:51) Lactic Acid (01/24/17 18:51) Labs Laboratory Tests Test 01/24/17 01/24/17 19:00 19:35 White Blood Count 6.6 TH/MM3 Red Blood Count 4.13 MIL/MM3 Hemoglobin 11.7 GM/DL Hematocrit 35.4 % Mean Corpuscular Volume 85.8 FL Mean Corpuscular Hemoglobin 28.2 PG Mean Corpuscular Hemoglobin 32.9 % Concent Red Cell Distribution Width 14.9 % Platelet Count 301 TH/MM3 Mean Platelet Volume 7.1 FL Neutrophils (%) (Auto) 78.7 % Lymphocytes (%) (Auto) 15.0 % Monocytes (%) (Auto) 5.3 % Eosinophils (%) (Auto) 0.5 % Basophils (%) (Auto) 0.5 % Neutrophils # (Auto) 5.2 TH/MM3 Lymphocytes # (Auto) 1.0 TH/MM3 Monocytes # (Auto) 0.3 TH/MM3 Eosinophils # (Auto) 0.0 TH/MM3 Basophils # (Auto) 0.0 TH/MM3 CBC Comment DIFF FINAL Differential Comment Sodium Level 144 MEQ/L Potassium Level 4.1 MEQ/L Chloride Level 110 MEQ/L Carbon Dioxide Level 25.0 MEQ/L Anion Gap 9 MEQ/L Blood Urea Nitrogen 14 MG/DL Creatinine 1.89 MG/DL Estimat Glomerular Filtration 48 ML/MIN Rate Random Glucose 170 MG/DL Calcium Level 9.4 MG/DL Total Bilirubin 0.1 MG/DL Aspartate Amino Transf 23 U/L (AST/SGOT) Alanine Aminotransferase 41 U/L (ALT/SGPT) Alkaline Phosphatase 89 U/L Total Protein 7.2 GM/DL Albumin 3.5 GM/DL Salicylates Level LESS THAN 1.7 MG/DL Urine Opiates Screen NEG Acetaminophen Level LESS THAN 2.0 MCG/ML Urine Barbiturates Screen NEG Urine Amphetamines Screen NEG Urine Benzodiazepines Screen NEG Urine Cocaine Screen POS Urine Cannabinoids Screen POS Ethyl Alcohol Level LESS THAN 3 MG/DL Lactic Acid Level 3.8 mmol/L Total Creatine Kinase 195 U/L MDM Medical Record Reviewed: Yes Supervised Visit with GOPI: No Interpretation(s) CBC & BMP Diagram 01/24/17 19:00 tox screen positive for cannabinoids and cocaine BMP Diagram 01/24/17 19:00 Differential Diagnosis Substance abuse versus seizure versus depression versus altered mental status Narrative Course 41-year-old male that presents to the ED for evaluation of substance abuse. Patient was properly examined by my attending. Please refer to his note. My attending signed out the patient to me pending labs and reassessment. Labs were essentially unremarkable.. Patient received fluids and Ativan with good results. Patient appears to be more coherent and in no signs of acute agitation. His "seizure" at this time appears to be more related to a reaction to his substance abuse. Patient was told to using drugs. Patient was told to keep hydrated. Follow up with PCP. See ED for any worsening symptoms. Diagnosis Primary Impression: Polysubstance abuse Patient Instructions: General Instructions Additional Instruction: Stop using drugs. Drink plenty of fluids. See ED for worsening symptoms. Follow with PCP. Med/Other Pt SpecificInfo: No Change to Meds Disposition: 01 DISCHARGE HOME Condition: Stable Jake Rosario Jan 24, 2017 19:31
[2017-01-24 19:32] VITALS: BP 117/65; PULSE 106; RESP 20; TEMP 97.7; O2SAT 95
[2017-01-24 19:54] LABS: ALKALINE PHOSPHATASE 89 U/L (45-117); ALT (GPT) 41 U/L (12-78); ANION GAP 9 MEQ/L (5-15); AST (GOT) 23 U/L (15-37); BLOOD UREA NITROGEN 14 MG/DL (7-18); CHLORIDE 110 MEQ/L (98-107); GLOMERULAR FILTRATION RATE 48 ML/MIN (>89); POTASSIUM 4.1 MEQ/L (3.5-5.1); SODIUM (NA) 144 MEQ/L (136-145); TOTAL BILIRUBIN ADULT 0.1 MG/DL (0.2-1.0)
[2017-01-24 19:56] LABS: ACETAMINOPHEN LESS THAN 2.0 MCG/ML (10.0-30.0)
[2017-01-24 20:03] LABS: AMPHETAMINE, URINE NEG (NEG); BARBITURATES, URINE NEG (NEG); COCAINE, URINE POS (NEG)
[2017-01-24 21:03] VITALS: BP 133/72; PULSE 97; RESP 20; O2SAT 97
[2017-01-25 06:31] VITALS: BP 136/78
--- NOTE | 2017-01-25 21:52 | EKG ---
Date Performed: 01/24/2017 Time Performed: 19:42:38 PTAGE: 41 years EKG: Sinus rhythm NONSPECIFIC T-WAVE ABNORMALITY Since previous tracing, no significant change noted BORDERLINE ECG PREVIOUS TRACING : 01/23/17 16.16.27 DOCTOR: Lisset Mcgee Interpretating Date/Time 01/25/2017 21:51:03
== END 2017-01-25 06:38 | disposition home or self-care (01) ==
LOC: NEPE 18:44
DX: F14.10 Cocaine abuse, uncomplicated (principal); F12.10 Cannabis abuse, uncomplicated; F32.9 Major depressive disorder, single episode, unspecified; F20.9 Schizophrenia, unspecified; R00.0 Tachycardia, unspecified
CPT/HCPCS: 80053; 80307; 82550; 83605; 85025; 93005; 96361; 96374; 99284; J2060; J7030

== ENCOUNTER 2017-01-25 23:28 | Inpatient (IN) | payer OTHER ==
[~2017-01-25] VITALS: Ht 170.2 cm; Wt 112.1 kg
[2017-01-26 01:45] VITALS: BP 161/102; PULSE 68; RESP 20; TEMP 97.6; O2SAT 98
[2017-01-26] MEDS ORDERED: MAGNESIUM HYDROXIDE SUSP 30 ML CUP PO PRN ×2 (02:45→12:00)
[2017-01-26] MEDS ORDERED: hydrOXYzine HCL 50 MG TAB PO PRN (02:45)
[2017-01-26] MEDS ORDERED: ACETAMINOPHEN 325 MG TAB PO PRN ×2 (02:45→12:00)
[2017-01-26] MEDS ORDERED: diphenhydrAMINE HCL 50 MG CAP - HS PRN PO (02:45)
[2017-01-26] MEDS ORDERED: ALUMINUM/MAGNESIUM/SIMETH 30 ML CUP PO PRN ×2 (02:45→12:00)
[2017-01-26] MEDS ORDERED: diphenhydrAMINE HCL 50 MG/ML VIAL - HS PRN IM (02:45)
[2017-01-26 05:51] VITALS: BP 134/79; PULSE 74; RESP 20; TEMP 99; O2SAT 96
--- NOTE | 2017-01-26 12:30 | HHI.HP ---
Provisional Diagnosis Admission Date Jan 26, 2017 at 01:45 Matthews I. Cocaine abuse of cocaine induced mood disorder F 14.14, cocaine abuse F 14.10, marijuana abuse F 12.10, malingering Z 76.5 Matthews II. Antisocial personality disorder F 60.2 Certification of Person's Competence To Provide Express and Informed Consent I have personally examined Madeline Donovan, , a person being served at [facility] on, Jan 26, 2017 12:08. Express and informed consent means consent voluntarily given in writing, by a competent person, after sufficient explanation and disclosure of the subject matter involved to enable the person to make a knowing and willful decision without any element of force, fraud, deceit, duress, or other form of constraint or coercion. This person is 18 years of age or older, is not now known to be incompetent to consent to treatment with a guardian advocate, and does not have a health care surrogate or proxy currently making medical treatment decisions. I have found this person to be one of the following: [x] Competent to provide express and informed consent, as defined above, for voluntary admission to this facility and is competent to provide express and informed consent for treatment. He/she has the consistent capacity to make well reasoned, willful, and knowing decisions concerning his or her medical or mental health treatment. The person fully and consistently understands the purpose of the admission for examination/placement and is fully capable of personally exercising all rights assured [place] Incompetent to provide express and informed consent to voluntary admission, and this is incompetent to provide express and informed consent to treatment. The person must be transferred to involuntary status and a petition for a guardian advocate filed with the Circuit Court. [] Refusing to provide express and informed consent to voluntary admission but is competent to provide express and informed consent for treatment. The person must be discharged or transferred to involuntary status. Form shall be completed within 24 hours of a person's arrival at the receiving facility and filed in the clinical record of each person: 1. Admitted on a voluntary basis 2. Permitted to provide express and informed consent to his/her own treatment 3. Allowed to transfer from involuntary to voluntary status 4. Prior to permitting a person to consent to his or her own treatment after having been previously found incompetent to consent to treatment. History of Present Illness Capacity: Has Capacity HPI Patient is a 41-year-old Afro-Congolese male who comes here under Lamas act dated 01/25/17 at 1747 hrs. Lamas act reviewed essentially stating that the patient was feeling depressed and suicidal, feeling like jumping in front of her car, feels like a medications were not working and supposedly prior suicide attempts. Patient was seen screened at that facility it appears a urine toxicology was ordered though there is no record on the information sent to us. Blood alcohol level was negligible. Of interest this the patient's fifth visit with us since 01/09/17. On 01/09/17 patient was seen in consultation by Dr. Edgar visit [id number] at that visit urine toxicology was positive for cocaine and marijuana. Dr. Edgar lift the Lamas act and allow the patient to be discharged. On 01/11/[address] Mahesh flower under visit [id number] at that time patient was also discharged. On 01/23/17 under visit [id number] patient is seen in the emergency department and left AMA. On 12/03/19 patient was seen in the ED visit [id number] though possible seizure disorder urine toxicology and that they positive for cocaine and marijuana patient was discharged from the ED. It appears that patient then made his way to [facility] with the subsequent Lamas act and referral back here. At the present time patient sitting quietly in his room on [address], counselor rick, and family practice resident siddharth, present throughout session. Patient states he recently relocated here from [place] less than a month ago attempting to find what he called "transitional" housing. It appears the patient has had multiple contacts with the criminal system is patent multiple years in [facility] various charges including weapons charges. He acknowledges frequent use of cocaine and marijuana. 3 minimizes it. It appears she does have some mental health history but has document Dr. Edgar's assessment has been noncompliant with medications and noncompliant with any mental health follow-ups. Patient denies any detox or rehabilitation in the past. It appears she does have a duty officer he has some subtle court hearing towards the end of January perhaps her system in finding some type of residential placement. Patient denies suicidality at the present time. Does acknowledge his desire to find some type of housing. He has made contact with our [facility]. And is aware of the procedure for that facility. In any event at the present time patient does not meet Lamas act criteria I'll lift the Lamas act. He does not meet criteria for inpatient psychiatric hospitalization thus I will discharge the patient to himself with no Rx by me though that appears to be some documentation that he has the past been on Zoloft 100 mg daily Seroquel 600 mg at at bedtime and Haldol 10 mg twice a day though there is no documentation of his compliance with these medications. At this time would be no Rx by me. If patient remains in town we will refer Mr. Nupur arthur for further assessment concerning his need for psychotropic medications. We did offer the patient that opportunity of returning to [place] at this time he declined we will give him passes for the [facility]. Thus patient to be discharged today Review of Systems Constitutional: DENIES: Diaphoretic episodes, Fatigue, Fever, Weight gain, Weight loss, Chills, Dizziness, Change in appetite, Night Sweats Endocrine: DENIES: Heat/cold intolerance, Polydipsia, Polyuria, Polyphagia Eyes: DENIES: Blurred vision, Diplopia, Eye inflammation, Eye pain, Vision loss , Photosensitivity, Double Vision Ears, nose, mouth, throat: DENIES: Tinnitus, Hearing loss, Vertigo, Nasal discharge, Oral lesions, Throat pain, Hoarseness, Ear Pain, Running Nose, Epistaxis, Sinus Pain, Toothache, Odynophagia Respiratory: DENIES: Apneas, Cough, Snoring, Wheezing, Hemoptysis, Sputum production, Shortness of breath Cardiovascular: DENIES: Chest pain, Palpitations, Syncope, Dyspnea on Exertion , PND, Lower Extremity Edema, Orthopnea, Claudication Gastrointestinal: DENIES: Abdominal pain, Black stools, Bloody stools, Constipation, Diarrhea, Nausea, Vomiting, Difficulty Swallowing, Anorexia Genitourinary: DENIES: Sexual dysfunction, Urinary frequency, Urinary incontinence, Urgency, Hematuria, Dysuria, Nocturia, Penile Discharge, Testicular Pain, Testicular Swelling Musculoskeletal: DENIES: Joint pain, Muscle aches, Stiffness, Joint Swelling, Back pain, Neck pain Integumentary: DENIES: Abnormal pigmentation, Nail changes, Pruritus, Rash Hematologic/lymphatic: DENIES: Bruising, Lymphadenopathy Immunologic/allergic: DENIES: Eczema, Urticaria Neurologic: DENIES: Abnormal gait, Headache, Localized weakness, Paresthesias, Seizures, Speech Problems, Tremor, Poor Balance Psychiatric: DENIES: Anxiety, Confusion, Mood changes, Depression, Hallucinations, Agitation, Suicidal Ideation, Homicidal Ideation, Delusions Past Psych History Psychological trauma history Patient make vague reference to past abuse Violence risk - others (6 mos) Patient has long criminal history of antisocial behaviors and incarcerations Violence risk - self (6 mos) The patient is made vague suicidal ideation and feel this is of a manipulative and malingering effort Substance Abuse History Drugs/Alcohol past 12 months Patient active cocaine and marijuana abuser Past Family Social History Coded Allergies: No Known Allergies (Unverified , 01/24/17) Past Medical History Patient medically clear [facility] Reported Medications Sertraline (Zoloft)50 Mg Tab50 Mg PO DAILY #30 TAB Ref 0 01/08/17 Quetiapine (Seroquel)400 Mg Bkb000 Mg PO HS #30 TAB Ref 0 01/08/17 Current Medications Medications (Trade) Dose Ordered Sig/Adan Route Start Time Stop Time Status Last Admin (Atarax) 50 mg Q6H PRN PO 01/26/17 02:45 (Benadryl) 50 mg HS PRN PO 01/26/17 02:45 (Benadryl Inj) 50 mg HS PRN IM 01/26/17 02:45 (Tylenol) 650 mg Q4H PRN PO 01/26/17 02:45 (Milk Of Magnesia Liq) 30 ml DAILY PRN PO 01/26/17 02:45 (Mag-Al Plus Susp Liq) 30 ml Q6H PRN PO 01/26/17 02:45 Family History Unknown at this time Social History Patient homeless never been states she has a 9-year-old son that lives in [place] Patient's Strengths (min. 2) Patient verbal able to access healthcare Physical Exam Patient seen screened in [facility] medically cleared there level signs blood pressure 134/79 pulse 74 respirations 20 Vital Signs Vital Signs Date Time Temp Pulse Resp B/P Pulse Ox O2 Delivery O2 Flow Rate FiO2 01/26/17 05:51 99.0 74 20 134/79 96 Mental Status Examination Alert oriented stockily built male sitting calmly in his room with staff as mentioned above. He has fair eye contact he is calm cooperative, if somewhat guarded Appearance Fairly clean and neat Speech: Unremarkable Orientation: x3 Memory: Unremarkable Thought Process: Logical Thought Content: Unremarkable Hallucination Type: None Attention and Concentration: Other (fair) Suicidal Ideation: No (denies) Previous Suicide Attempts: Yes (vague history of prior attempts) Homicidal Ideation: No (denies) Previous Homicide Attempts: No (denies still he has been incarcerated for weapons charges) Insight: Poor Judgement: Poor Affect: Other (slight decreased range and intensity) Mood: Euthymic (to somewhat restricted) Motor Activity: Normal gait Assessment & Plan Problem List: (1) Cocaine abuse with cocaine-induced mood disorder ICD Code: F14.14 (2) Marijuana abuse ICD Code: F12.10 (3) Malingering ICD Code: Z76.5 (4) Cocaine abuse ICD Code: F14.10 (5) Antisocial personality disorder ICD Code: F60.2 Assessment & Plan Estimated LOS: days patient does not meet Lamas criteria will lift Lamas act. Patient was discharged to himself. No Rx by me. He may continues on prescription medication at his discretion. Patient be given passes for the [facility]. And referred to [facility] act differently remains in town Discharge Planning See above Request HC Surrog/Guard Advoc?: No Carlos Serna MD Jan 26, 2017 12:30
--- NOTE | 2017-01-26 12:36 | HHI.DS ---
Psychiatry Discharge Summary Inpatient Psychiatric care?: Yes Advance Directive: No Reason Not Provided: ref Mental Health AdvanceDirective: No (ref) Health Care Proxy: No Admission Admission Date Jan 26, 2017 at 01:45 Admission Diagnosis: (1) Cocaine abuse with cocaine-induced mood disorder ICD Code: F14.14 (2) Antisocial personality disorder ICD Code: F60.2 (3) Marijuana abuse ICD Code: F12.10 (4) Malingering ICD Code: Z76.5 (5) Cocaine abuse ICD Code: F14.10 Brief History Patient is a 41-year-old Afro-Spanish male who comes here under Lamas act dated 01/25/17 at 1747 hrs. Lamas act reviewed essentially stating that the patient was feeling depressed and suicidal, feeling like jumping in front of her car, feels like a medications were not working and supposedly prior suicide attempts. Patient was seen screened at that facility it appears a urine toxicology was ordered though there is no record on the information sent to us. Blood alcohol level was negligible. Of interest this the patient's fifth visit with us since 01/09/17. On 01/09/17 patient was seen in consultation by Dr. Edgar visit [id number] at that visit urine toxicology was positive for cocaine and marijuana. Dr. Edgar lift the Lamas act and allow the patient to be discharged. On 01/11/[address] Mahesh flower under visit [id number] at that time patient was also discharged. On 01/23/17 under visit [id number] patient is seen in the emergency department and left AMA. On 12/03/19 patient was seen in the ED visit [id number] though possible seizure disorder urine toxicology and that they positive for cocaine and marijuana patient was discharged from the ED. It appears that patient then made his way to [facility] with the subsequent Lamas act and referral back here. At the present time patient sitting quietly in his room on [address], counselor rick, and family practice resident siddharth, present throughout session. Patient states he recently relocated here from [place] less than a month ago attempting to find what he called "transitional" housing. It appears the patient has had multiple contacts with the criminal system is [place] multiple years in [facility] various charges including weapons charges. He acknowledges frequent use of cocaine and marijuana. 3 minimizes it. It appears she does have some mental health history but has document Dr. Edgar's assessment has been noncompliant with medications and noncompliant with any mental health follow-ups. Patient denies any detox or rehabilitation in the past. It appears she does have a medical officer he has some subtle court hearing towards the end of January perhaps her system in finding some type of residential placement. Patient denies suicidality at the present time. Does acknowledge his desire to find some type of housing. He has made contact with our [facility]. And is aware of the procedure for that facility. In any event at the present time patient does not meet Lamas act criteria I'll lift the Lamas act. He does not meet criteria for inpatient psychiatric hospitalization thus I will discharge the patient to himself with no Rx by me though that appears to be some documentation that he has the past been on Zoloft 100 mg daily Seroquel 600 mg at at bedtime and Haldol 10 mg twice a day though there is no documentation of his compliance with these medications. At this time would be no Rx by me. If patient remains in [facility] we will refer Mr. Nupur arthur for further assessment concerning his need for psychotropic medications. We did offer the patient that opportunity of returning to [place] at this time he declined we will give him passes for the [facility]. Thus patient to be discharged today Tobacco Use In Past 30 Days: No Tobacco Past 30 Days Alcohol Use: Never Hospital Course See above note brief history. Patient does not meet Lamas act criteria. Patient to be discharged. No Rx by me. He may continue his own prescribed medications at his discretion. Follow-up Mati arthur patient remains in [facility] Results Blood Pressure 134 / 79 Vital Signs Date Time Temp Pulse Resp B/P Pulse Ox O2 Delivery O2 Flow Rate FiO2 01/26/17 05:51 99.0 74 20 134/79 96 Urine toxicology and 01/24 positive for cocaine and marijuana Summary of Procedures None done Pending results at discharge: No Medications # of Antipsychotic meds at D/C: 0 Approp Antipsych med options 1 - Minimum of three failed multiple trials of monotherapy. 2 - Documented plan to taper to monotherapy due to previous use of multiple meds OR cross-taper in progress at D/C. 3 - Documentation of augmentation of Clozapine. 4 - Justification other than those listed in allowable values 1-3, document here : Discharge Discharge Date: Jan 26, 2017 Discharge Diagnosis: (1) Cocaine abuse with cocaine-induced mood disorder Diagnosis: Principal ICD Code: F14.14 (2) Antisocial personality disorder Diagnosis: Principal ICD Code: F60.2 (3) Marijuana abuse Diagnosis: Principal ICD Code: F12.10 (4) Malingering Diagnosis: Secondary ICD Code: Z76.5 (5) Cocaine abuse Diagnosis: Principal ICD Code: F14.10 Mental Status Exam at Disch Alert oriented stockily built Afro-Spanish male calm cooperative, normal active , mood is euthymic to somewhat restricted, affect shows decreased range intensity, speech rate and rhythm are within normal limits though no formal thought disorders. No auditory or visual hallucinations. No delusions. Insight and judgment is poor cognition grossly intact Pt Condition on Discharge: Stable Discharge Disposition: Discharge Home Discharge Instructions Diet Instructions: As Tolerated, No Restrictions Activities you can perform: Regular-No Restrictions Scheduled Appointment: Mati Arthur (if patient remains in [place]) Discharge Time > 30 minutes Discharge/Advance Care Plan Health Problems: (1) Cocaine abuse with cocaine-induced mood disorder (2) Marijuana abuse (3) Malingering (4) Cocaine abuse (5) Antisocial personality disorder Goals to promote your health * To prevent worsening of your condition and complications * To maintain your health at the optimal level Directions to meet your goals Take your medications as prescribed Follow your dietary instruction Follow activity as directed Keep your appointments as scheduled Take your immunizations and boosters as scheduled If your symptoms worsen call your PCP, if no PCP go to Urgent Care Center or Emergency Room For 24/ questions related to your inpatient stay or results of tests pending at discharge, please contact Dr. Carlos Serna at Smoking is Dangerous to Your Health. Avoid second hand smoking Carlos Serna MD Jan 26, 2017 12:36
== END 2017-01-26 14:30 | disposition home or self-care (01) | DRG 897 ==
LOC: H260 01-26 01:45
PROVIDERS: ADMIT Psychiatry & Neurology Psychiatry; ATTEND Psychiatry & Neurology Psychiatry
DX: F14.14 Cocaine abuse with cocaine-induced mood disorder (principal); R45.851 Suicidal ideations; F60.2 Antisocial personality disorder; F12.10 Cannabis abuse, uncomplicated; Z76.5 Malingerer [conscious simulation]; Z91.14 Patient's other noncompliance with medication regimen; Z59.0 Homelessness
CPT/HCPCS: 80053; 80307; 82550; 83605; 85025; 93005; 96361; 96374; J2060; J7030